=== PATIENT | female | born 1950 | race Caucasian/White ===

== ENCOUNTER → 2017-06-27 | Outpatient (CLI) | payer MEDICARE, OTHER ==
[~2017-06-27] MED LIST: FLEXERIL; IBU400 MG PO; KLOR-CON M1010 MEQ PO; MAXZIDE 25 MG-31 TAB PO; MYSOLINE PO; MYSOLINE50 MG PO; PERCOCET 325 MG1 TA2 PO; PREMPRO 0.625/21 TAB PO; PRILOSEC 20MG20 MG PO
== END ==
LOC: MC.RAD 13:13
DX: Z12.31 Encounter for screening mammogram for malignant neoplasm of breast (principal)

== ENCOUNTER → 2018-02-04 | Outpatient (CLI) | payer MEDICARE, OTHER | LOC: MHCPAIN 14:06 | DX: G89.29 Other chronic pain (principal); M47.817 Spondylosis without myelopathy or radiculopathy, lumbosacral region; M54.16 Radiculopathy, lumbar region; M53.3 Sacrococcygeal disorders, not elsewhere classified; M41.9 Scoliosis, unspecified; M48.061 Spinal stenosis, lumbar region without neurogenic claudication | CPT/HCPCS: G0463 ==

== ENCOUNTER → 2018-02-19 | Outpatient (CLI) | payer MEDICARE, OTHER | LOC: MHCPAIN 12:11 | DX: M47.27 Other spondylosis with radiculopathy, lumbosacral region (principal); M41.9 Scoliosis, unspecified | CPT/HCPCS: J1100; Q9967 ==

== ENCOUNTER → 2018-03-06 | Outpatient (CLI) | payer MEDICARE, OTHER | LOC: MHCPAIN 08:42 | DX: G89.29 Other chronic pain (principal); M47.817 Spondylosis without myelopathy or radiculopathy, lumbosacral region; M54.16 Radiculopathy, lumbar region; M48.061 Spinal stenosis, lumbar region without neurogenic claudication | CPT/HCPCS: G0463 ==

== ENCOUNTER → 2018-03-12 | Outpatient (CLI) | payer MEDICARE, OTHER | LOC: MHCPAIN 08:43 | DX: M47.817 Spondylosis without myelopathy or radiculopathy, lumbosacral region (principal); M48.061 Spinal stenosis, lumbar region without neurogenic claudication | CPT/HCPCS: J1100; Q9967 ==

== ENCOUNTER → 2018-03-27 | Outpatient (CLI) | payer MEDICARE, OTHER | LOC: MHCPAIN 08:27 | DX: G89.29 Other chronic pain (principal); M47.817 Spondylosis without myelopathy or radiculopathy, lumbosacral region; M54.16 Radiculopathy, lumbar region; M53.3 Sacrococcygeal disorders, not elsewhere classified; M48.061 Spinal stenosis, lumbar region without neurogenic claudication; M41.9 Scoliosis, unspecified | CPT/HCPCS: G0463 ==

== ENCOUNTER → 2018-07-17 | Outpatient (CLI) | payer MEDICARE, OTHER | LOC: MC.RAD 10:34 | DX: Z12.31 Encounter for screening mammogram for malignant neoplasm of breast (principal) ==